=== PATIENT | female | born 1935 | race Caucasian/White ===

== ENCOUNTER → 2017-08-09 12:26 | Outpatient (CLI) | payer MEDICARE, MEDICAID, SELFPAY ==
--- NOTE | 2017-08-09 12:29 | CT_ITS ---
STUDY: CT CHEST WITHOUT CONTRAST REASON FOR EXAM: Female, 82 years old. Follow-up nodule. RADIATION DOSAGE (If Supplied By Facility): CTDIvol = ( 6.04 ) mGy, DLP = ( 229.59 ) mGycm TECHNIQUE: Transaxial imaging was performed without the administration of intravenous contrast material. Individualized dose optimization techniques were used for this CT. COMPARISON: CT scan chest 08/09/2016 and 02/08/2016. FINDINGS: There is a calcification in the thyroid isthmus which is stable in appearance. There are fibrotic and emphysematous changes in the lungs. There is no visualized discrete pulmonary nodule. There is no demonstrated mass or focal pulmonary infiltrate. There is no demonstrated pleural abnormality. Normal heart and pericardium. There are coronary artery calcifications. There are mediastinal lymph nodes which are normal in size and morphology. Normal hilar regions. Normal unenhanced pulmonary arteries. There are atherosclerotic calcifications of the thoracic aorta and great vessels. There are multi-level degenerative changes of the thoracic spine. There are bilateral adrenal adenomas. 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 Atherosclerosis. No evidence for acute cardiopulmonary pathology. No visualized pulmonary nodules. Bilateral adrenal adenomas. Electronically Signed: Saul Dejesus MD at 6:34 EDT , Service support ,
== END ==
PROVIDERS: Family Provider Nurse Practitioner Family; PCP Nurse Practitioner Family; Visit Provider Internal Medicine Pulmonary Disease
DX: R91.1 Solitary pulmonary nodule (principal)
CPT/HCPCS: 71250

== ENCOUNTER 2018-12-10 23:04 | Observation (INO) | payer MEDICARE, MEDICAID, SELFPAY ==
[2018-12-10 23:04] VITALS: BP 183/70; PULSE 57; RESP 13; TEMP 36.8; O2SAT 96; BMI 18.6
--- NOTE | 2018-12-10 23:21 | EKG12_ITS ---
Test Reason : CP Blood Pressure : / mmHG Vent. Rate : 053 BPM Atrial Rate : 053 BPM P-R Int : 162 ms QRS Dur : 082 ms QT Int : 534 ms P-R-T Axes : 087 059 122 degrees QTc Int : 501 ms Sinus bradycardia Minimal voltage criteria for LVH, may be normal variant ST & T wave abnormality, consider anterolateral ischemia Prolonged QT Abnormal ECG Confirmed by LINSEY GREEN, CHIOMA ([id number]), features editor DARWIN RAMIREZ ([id number]) on 12/13/2018 10:22:28 AM Referred By: Jhon De León Confirmed By:CHIOMA STILES MD
--- NOTE | 2018-12-10 23:22 | ED.DCSUM_ITS ---
- ER Visit Summary Date of Service: 12/10/18 Chief Complaint: Chest pain History of Present Illness: The patient is a 83 F who presents with chest pain. This began about 5 hours before presentation while at rest. It is in the center of her chest and radiated into her right jaw. She took one sublingual ni troglycerin with improvement but not resolution of symptoms. Her pain was severe but she currently rates it as 2 out of 10. She denies any associated symptoms such as nausea vomiting shortness of breath diaphoresis. She denies history of coronary disease. She is a heavy smoker and also treated for hypertension and hyperlipidemia. Physical Examination: Afebrile blood pressure 183/70 heart rate 57 No distress Skin warm and dry Moist mucous membranes Heart regular bradycardia Lungs clear Abdomen soft 2+ symmetric radial pulses Alert Test Results: EKG shows sinus rhythm at a rate of 53 no ectopy she has lateral T wave inversions and a Wellens syndrome appearance of V3 although this is overall similar to prior. CBC BMP unremarkable and troponin negative. Chest x-ray shows findings consistent with COPD. Emergency Department Course and Treatment: Patient was given 1 further sublingual nitroglycerin here and pain is resolved. She does have multiple risk factors. Her presentation is very concerning for cardiac ischemia. Patient will be discussed with the hospitalist and admitted. Treatment Plan: [] Disposition: Admit Impression: Chest pain This note was generated with [employer] dictation software. It may contain incorrect words, spelling, and punctuation that were not noted in review of the chart prior to signing ED Disposition - Plan for ED Patient: Referrals: Martin Christie, EITAN-C [Primary Care Provider] -
[2018-12-10] MEDS: Nitroglycerin SL (ED/IMG/CATH) 0.4 MG TABLET SUBLINGUAL (23:31)
[2018-12-10 23:32] LABS: Absolute Lymphocyte Count 1.69 X10^3/uL (0.83-4.51); Absolute Neutrophil Count 6.1 X10^3/uL (2.0-7.7); Basophil# 0.05 X10^3/uL; Basophil% 0.6 % (0-1); Eosinophils% 1.1 % (0-5); Hematocrit 42.2 % (37-47); Hemoglobin 14.3 g/dL (12.0-15.0); Lymphocyte # 1.69 X10^3/ul (4.0); Lymphocyte % 19.2 % (19-41); Mean Corp Hgb Conc 33.9 g/dL (32-36); Mean Corpuscular Hgb 33.1 pg (27.0-32.0); Mean Corpuscular Volume 97.7 fL (81-99); Mean Platelet Vol. 11.7 fl (6.2-12.0); Monocyte# 0.75 X10^3/uL; Monocyte% 8.5 % (0-10); NRBC Flagged by Analyzer 0 % (0-5); Neutrophil # 6.13 X10^3/uL (2.7-7.7); Neutrophil % 69.9 % (47-70); Platelet Count 178 K/mm3 (150-450); RBC Distribution Width CV 13.1 % (11.6-14.6); RBC Distribution Width SD 46.7 fl (35.1-43.9); Red Blood Count 4.32 M/mm3 (4.2-5.4); White Blood Count 8.8 K/mm3 (4.4-11.0)
[2018-12-10 23:36] VITALS: BP 129/72; PULSE 56
[2018-12-10 23:45] LABS: Anion Gap 4 (5-15); BUN 17 mg/dL (7-18); BUN/Creat Ratio 20.6 RATIO (10-20); Calcium,Total 9.2 mg/dL (8.5-10.1); Chloride 105 mmol/L (98-107); Creatinine, Serum 0.82 mg/dL (0.55-1.02); EST Glomerular Filtration Rate 70 mL/min (>60); Est Glom Filt Rate - Afr Amer 85 mL/min (>60); Estimated Creatinine Clearance 37.25 ml/min; Glucose 113 mg/dL (74-106); Potassium 3.7 mmol/L (3.5-5.1); Sodium Level 137 mmol/L (136-145)
--- NOTE | 2018-12-11 | RAD_ITS ---
STUDY: X-RAY CHEST REASON FOR EXAM: Female, 83 years old. Chest pain TECHNIQUE: Frontal and lateral views of the chest. COMPARISON: None. FINDINGS: There is hyperinflation of the lungs consistent with chronic obstructive lung disease (COPD). There is no demonstrated pleural abnormality. Normal size heart. Normal mediastinum and matthias. Normal visualized pulmonary arteries. Normal visualized aortic arch and descending thoracic aorta. There is demineralization of the osseous structures. There is degenerative osteoarthritis of the bilateral shoulders. There is no demonstrated abnormality of the visualized soft tissue structures of the upper abdomen. RAD/Chest PA and Lateral IMPRESSION: COPD. Electronically Signed: Lenora Haynes, at 1:29 EDT Tel , Service support ,
--- NOTE | 2018-12-11 02:20 | PCM.HP.STD ---
Problem List (1) COPD Status: Chronic (2) RA (rheumatoid arthritis) Status: Chronic (3) Osteoarthritis Status: Chronic (4) Pulmonary hypertension Status: Chronic (5) CKD stage III Status: Chronic (6) Hypertension Status: Chronic (7) Abnormal electrocardiogram [ECG] [EKG] Status: Chronic (8) Chest pain Status: Acute History of Present Illness Date of Admission: 12/11/18 Chief Complaint: Chest pain The patient is a 83 year old F with history of COPD, smoker about 70 pack years of his smoking came to ER with sudden onset of chest pain about 6:30 PM on 12/10/2018. Pain lasted for about 5 hours and she took 1 nitro sublingual and EMS gave 3 tablets of aspirin. She describes chest pain as midsternal with radiation to right carotid and right side of chest and she was not able to lay down. She denies any shortness of breath, diaphoresis, syncope. She denies recent URI but has occasional chronic cough secondary to COPD. In ED, EKG shows sinus bradycardia at 53 bpm, ST-T changes. T inversion in 1, V3 to V6. Similar T inversion noticed in EKG of February 2016 when she was admitted for chest pain. At that time stress test was negative. Later on she had another nuclear stress test in 2018 in [facility] and as per patient it was negative. [] Past Medical History Past Medical History (Chronic Problems): Chronic Problems COPD (Chronic) RA (rheumatoid arthritis) (Chronic) Osteoarthritis (Chronic) Pulmonary hypertension (Chronic) CKD stage III (Chronic) Hypertension (Chronic) Abnormal electrocardiogram [ECG] [EKG] (Chronic) Allergies No Known Allergies Allergy (Verified 12/10/18 23:10) Home Medications: Ambulatory Orders Medication Instructions Recorded Aspirin [Adult Low Dose Aspirin EC] 81 mg PO DAILY 02/07/16 Docusate Sodium [Stool Softener] 100 mg PO PRN PRN 02/07/16 Isosorbide Mononitrate [Isosorbide 30 mg PO DAILY 02/07/16 Mononitrate ER] Lisinopril/Hydrochlorothiazide 1 tablet PO DAILY 02/07/16 [Zestoretic 02/17.5 Tablet] Loratadine 10 mg PO DAILY 02/07/16 Meloxicam [Mobic] 15 mg PO DAILY 02/07/16 Metoprolol Tartrate [Lopressor 25 mg PO DAILY 02/07/16 (beta cherelle)] Nitroglycerin (INPATIENT USE) 0.4 mg SUBLINGUAL Q5M PRN 02/07/16 [Nitrostat] Oxybutynin Chloride [Ditropan Xl] 5 mg PO DAILY 02/07/16 Ranitidine HCl [Acid Control] 150 mg PO BID 02/07/16 Simvastatin [Zocor] 40 mg PO QHS 02/07/16 traMADol [Ultram] 50 mg PO Q6H PRN PRN 02/07/16 Albuterol Inhaler [Ventolin Hfa 2 puff INHALATION Q4H PRN PRN 12/10/18 (SP)] Alendronate Sodium [Fosamax] 70 mg PO QWEEK 12/10/18 Ergocalciferol [Vitamin D] 50,000 unit PO QMONTH 12/10/18 Tofacitinib Citrate [Xeljanz Xr] 11 mg PO DAILY 12/10/18 Surgical History: cataract, cholecystectomy, hysterectomy, - - Left shoulder rotator cuff repair Psychiatric History: No pertinent psych hx 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 Denies: Palpitations Respiratory: Reports: Cough - Chronic in nature. Denies: Shortness of breath at rest, Sputum production Gastrointestinal: Denies: Abdominal Pain, Nausea, Vomiting Genitourinary: Denies: Dysuria, Frequency, Hematuria, Hesitancy, Urgency Musculoskeletal: Reports: Hand Pain, Joint Pain, Joint stiffness, - - Has RA and osteoarthritis. Denies: Joint Tenderness Skin: Denies: Rash, Wounds Neurological: Reports: Balance problems. Denies: Focal weakness, Numbness, Tingling Psychiatric: Denies: Anxiety, Depression, Homicidal Ideations, Suicidal Ideations Hematologic/ Lymphatic: Denies: Easy Bruising, Easy Bleeding VTE Information - Inpt Only VTE Present on Admission: No VTE Mechan Device Prophylaxis: None VTE Pharm Prophylaxis ordered?: Yes - Physical Exam General: Alert, Oriented x3, Cooperative HEENT: Atraumatic, PERRLA, EOMI, Normocephalic Neck: Supple, No JVD, Negative Carotid Bruits Lungs: Clear to auscultation, No rhonchi, No wheeze, No rales, Diminished - Air entry severely diminished in all lung espinoza. Cardiovascular: Regular Rhythm, Normal S1, Normal S2, No murmurs, Bradycardic Abdomen: Bowel Sounds Present, Soft, Non Tender, Non-Distended Extremities: No edema, Capillary Refill Less than 3 Seconds Skin: No rashes, No breakdown Musculoskeletal: No Tenderness to Palpation of Joints or Extremities, Arthritic Changes, Muscle Wasting Lymphatic: No Cervical, Supraclavicular, or Inguinal Adenopathy Neurological: Cranial nerves II-XII grossly intact, Deep Tendon Reflexes 2+/4 and Symmetrical, Neuro grossly intact Psych/Mental Status: Normal Affect, Appropriate Vital Signs Temp Pulse Resp BP Pulse Ox 98.2 F 56 L 13 129/72 H 96 12/10/18 23:04 12/10/18 23:36 12/10/18 23:04 12/10/18 23:36 12/10/18 23:04 Oxygen Delivery Method Room Air Weight: 101 lb 13.657 oz Body Mass Index (BMI) 18.6 Laboratory Tests Past 24 Hrs 12/10/18 12/10/18 23:10 23:10 WBC 8.8 RBC 4.32 Hgb 14.3 Hct 42.2 MCV 97.7 MCH 33.1 H MCHC 33.9 RDW Std Deviation 46.7 H RDW Coeff of Kerrie 13.1 Plt Count 178 MPV 11.7 Immature Gran % (Auto) 0.700 Neut % (Auto) 69.9 Lymph % (Auto) 19.2 [place] % (Auto) 8.5 Eos % (Auto) 1.1 Baso % (Auto) 0.6 Absolute Neuts (auto) 6.1 Absolute Lymphs (auto) 1.69 Nucleated RBC % 0 Sodium 137 Potassium 3.7 Chloride 105 Carbon Dioxide 28.0 Anion Gap 4 L BUN 17 Creatinine 0.82 Estim Creat Clear Calc 37.25 Est GFR (MDRD) Af Amer 85 Est GFR (MDRD) Non-Af 70 BUN/Creatinine Ratio 20.6 H Glucose 113 H Calcium 9.2 Troponin I < 0.015 Assessment/Plan All Active Problems Chest pain (Acute) The patient is a 83 year old F with history of COPD, smoker about 70 pack years of his smoking came to ER with sudden onset of chest pain about 6:30 PM on 12/10/2018. Pain lasted for about 5 hours and she took 1 nitro sublingual and EMS gave 3 tablets of aspirin. She describes chest pain as midsternal with radiation to right carotid and right side of chest and she was In ED, EKG shows sinus bradycardia at 53 bpm, ST-T changes. T inversion in 1, V3 to V6. Similar T inversion noticed in EKG of February 2016 when she was admitted for chest pain. At that time stress test was negative. Later on she had another nuclear stress test in 2018 in [facility] and as per patient it was negative. [] 1. Atypical chest pain rule out acute coronary syndrome: Patient is being admitted in PCU. Serial troponin enzymes. Lexiscan nuclear stress test tomorrow morning if troponin enzymes are negative. Patient had a negative Lexiscan nuclear stress test in February 2016 when she was admitted for chest pain. Echo at that time reported as EF 65% with normal LV size systolic function. Normal RV size systolic function. Mild to moderate TR, RVSP 46 mmHg suggestive of mild to moderate pulmonary hypertension. First troponin is negative. Her home medication of baby aspirin, simvastatin, and isosorbide mononitrate continued. It is unclear why she is on nitrate and metoprolol. Hold metoprolol for stress test tomorrow morning and also she is bradycardic 56/min 2. COPD with mild to moderate pulmonary hypertension: Stable. Currently she does not have shortness of breath or wheezing suggestive of COPD exacerbation. Continue albuterol and home inhalers. 3. Rheumatoid arthritis and osteoarthritis with chronic vitamin D supplement: Patient is on Xeljanz XR, vitamin D, Fosamax and tramadol as needed at home. 4. Hypertension and dyslipidemia: Continue lisinopril/HCTZ simvastatin. 5. Other comorbidities include chronic urinary incontinence and mild protein calorie malnutrition: Patient has decreased muscle mass of extremities probably secondary to COPD and chronic smoker. DVT prophylaxis: Lovenox 40 g subcu daily Code Visit OBSV E&M: [id number] Initial observation care L3
--- NOTE | 2018-12-11 02:37 | EKG12_ITS ---
Test Reason : CP ADMISSION Blood Pressure : / mmHG Vent. Rate : 049 BPM Atrial Rate : 049 BPM P-R Int : 168 ms QRS Dur : 082 ms QT Int : 542 ms P-R-T Axes : 085 068 140 degrees QTc Int : [address] & T wave abnormality, consider anterolateral ischemia Prolonged QT Abnormal ECG Confirmed by LINSEY GREEN, CHIOMA ([id number]), news editor DARWIN RAMIREZ ([id number]) on 12/13/2018 2:23:53 PM Referred By: Jhno De León Confirmed By:CHIOMA STILES MD
[2018-12-11 02:47] VITALS: BMI 17.4
[2018-12-11 02:51] VITALS: BP 166/55; PULSE 50; RESP 14; TEMP 36.6; O2SAT 96
[2018-12-11] MEDS: 0.9% Normal Saline 1,000 ML 75 ML IV (02:56)
[2018-12-11 03:00] VITALS: PULSE 53
[2018-12-11 06:14] VITALS: BP 161/59; PULSE 54; RESP 14; TEMP 36.5; O2SAT 94
[2018-12-11] MEDS: Lisinopril 10 MG Tablet PO (06:19)
[2018-12-11] MEDS: Aspirin E.C. 81 MG Tablet PO (06:19)
[2018-12-11] MEDS: 0.9% NaCl Peripheral Flush Adult/Peds IV (06:20)
[2018-12-11 06:41] LABS: Cholesterol 146 mg/dL (200); High Density Lipoprotein 70 mg/dL; Thyroid Stim Hormone (TSH) 1.03 uIU/mL (0.358-3.74); Triglycerides 82 mg/dL; Very Low Density Lipoprotein 16 mg/dL (5-40)
[2018-12-11 07:06] VITALS: O2SAT 94
--- NOTE | 2018-12-11 11:02 | DCINST_ITS ---
- Discharge Diagnoses Current Active Problems: Current Active and Chronic Problems COPD (Chronic) RA (rheumatoid arthritis) (Chronic) Osteoarthritis (Chronic) Pulmonary hypertension (Chronic) CKD stage III (Chronic) Hypertension (Chronic) You will use the following diet at home:: Cardiac Discharge Activity: Return to Normal Activity Call your doctor if you observe: Shortness of breath, Dizziness, Fainting spells, Chest pain Additional Instructions: Your blood pressure was above goal during admission. You will need to check your blood pressure twice daily at home and document readings. Report these readings to PCP at follow up in 1 week. If you have a reading greater than 180 systolically, notify your PCP right away. Allergies/Adverse Reactions: Allergies No Known Allergies Allergy (Verified 12/10/18 23:10) Medications to take at Discharge Aspirin [Adult Low Dose Aspirin EC] 81 mg PO DAILY 02/07/16 Docusate Sodium [Stool Softener] 100 mg PO PRN PRN 02/07/16 Isosorbide Mononitrate [Isosorbide Mononitrate ER] 30 mg PO DAILY 02/07/16 Lisinopril/Hydrochlorothiazide [Zestoretic 02/17.5 Tablet] 1 tablet PO DAILY 02/07/16 Loratadine 10 mg PO DAILY 02/07/16 Meloxicam [Mobic] 15 mg PO DAILY 02/07/16 Metoprolol Tartrate [Lopressor (beta cherelle)] 25 mg PO DAILY 02/07/16 Nitroglycerin (INPATIENT USE) [Nitrostat] 0.4 mg SUBLINGUAL Q5M PRN 02/07/16 Oxybutynin Chloride [Ditropan Xl] 5 mg PO DAILY 02/07/16 Ranitidine HCl [Acid Control] 150 mg PO BID 02/07/16 Simvastatin [Zocor] 40 mg PO QHS 02/07/16 traMADol [Ultram] 50 mg PO Q6H PRN PRN 02/07/16 Albuterol Inhaler [Ventolin Hfa (SP)] 2 puff INHALATION Q4H PRN PRN 12/10/18 Alendronate Sodium [Fosamax] 70 mg PO QWEEK 12/10/18 Ergocalciferol [Vitamin D] 50,000 unit PO QMONTH 12/10/18 Tofacitinib Citrate [Xeljanz Xr] 11 mg PO DAILY 12/10/18 Primary Care Physician: Martin Christie, EITAN-C [Primary Care Provider] - Please follow up with your Primary Care Physician in: 1 Week Test Results: Test results from this visit will be discussed in further detail at your follow- up appointment, if applicable. Proposed Discharge Date: 12/11/18
[2018-12-11] MEDS: Tolterodine Tartrate 2 MG CAP.SA PO (11:28)
[2018-12-11] MEDS: Isosorbide Mononitrate 30 MG Tablet PO (11:28)
[2018-12-11] MEDS: hydroCHLOROthiazide 12.5mg 12.5 MG PO (11:28)
[2018-12-11] MEDS: Famotidine 20 MG Tablet PO (11:28)
[2018-12-11 11:34] VITALS: BP 151/73; PULSE 60; RESP 16; TEMP 36.7; O2SAT 97
--- NOTE | 2018-12-11 12:36 | STRESSREP ---
Stress Test Report Date: 12-11-18 Procedure: Pharmacologic stress nuclear imaging study Indications: Chest pain Consent: Per the patient Procedure: The patient underwent pharmacologic (Regadenoson) evaluation with a peak heart rate of 101 beats per minute (74 %predicted maximal heart rate) and a peak blood pressure of 164/60 mmHg. The baseline ECG demonstrated sinus bradycardia; nonspecific T wave abnormality. The peak pharmacologic ECG demonstrated continued nonspecific T wave abnormality. There were no cardiac dysrhythmias pretest, during pharmacologic infusion, or recovery. There was no complaint of chest discomfort during pharmacologic infusion or recovery. The examination was discontinued secondary to completion of protocol. Impression: 1. Pharmacologic (Regadenoson) evaluation 2. Peak pharmacologic ECG with continued nonspecific T wave abnormality. 3. There were no cardiac dysrhythmias pretest, during pharmacologic infusion, or recovery. 4. Nuclear images pending Myocardial perfusion imaging study: Technique: The patient was injected with 12.0 millicuries of technetium 99m Cardiolite and subsequently rest SPECT Cardiolite nuclear imaging was obtained in the horizontal long, vertical long, and short axis views. The patient underwent pharmacologic (Regadenoson) evaluation with a peak heart rate of 101 beats per minute (74 % percent predicted maximal heart rate) and a peak blood pressure of 164/60 mmHg. The patient was injected with 36.0 millicuries of technetium 99m Cardiolite and subsequently stress SPECT Cardiolite nuclear imaging was obtained in the horizontal long, vertical long, and short axis views. A gated Cardiolite study at peak stress was obtained. Interpretation: Rest and stress SPECT Cardiolite nuclear imaging status post realignment, normalization, and attenuation correction demonstrate relative uniform tracer uptake and myocardial perfusion appearing within normal limits. There is end systolic thickening and brightening. The gated Cardiolite study demonstrates myocardial thickening and inward wall motion. The reported LVEF is 87 %. Impression: 1. Rest and stress SPECT Cardiolite nuclear imaging demonstrate relative uniform tracer uptake and myocardial perfusion appearing within normal limits. 2. The gated Cardiolite study reports an LVEF of 87 %. This note was generated with [employer] software. It may contain incorrect words, spelling, and punctuation that were not noted in checking the note before signing.
--- NOTE | 2018-12-11 12:43 | DS.PCM_ITS ---
<Queenie Zaldivar - Last Filed: 12/11/18 12:52> Discharge Date and Diagnosis Date of Admission: 12/11/18 Date of Discharge: 12/11/18 - Primary Discharge Diagnosis 1. Atypical chest pain, ACS ruled out 2. Chronic COPD 3. Mild to moderate pulmonary hypertension 4. Rheumatoid arthritis and osteoarthritis 5. Hypertension 6. Hyperlipidemia 7. Chronic urinary incontinence 8. Moderate protein calorie malnutrition 9. Tobacco dependence - Secondary Discharge Diagnosis Chronic Problems COPD (Chronic) RA (rheumatoid arthritis) (Chronic) Osteoarthritis (Chronic) Pulmonary hypertension (Chronic) CKD stage III (Chronic) Hypertension (Chronic) Abnormal electrocardiogram [ECG] [EKG] (Chronic) Hospital Course and Treatment Imaging Results: Diagnostic Data Chest X-Ray 12/11/18 00:00 IMPRESSION: COPD. Electronically Signed: Lenora Haynes, at 1:29 EDT Tel , Service support , Operations: None Procedures: Stress test Summary of Care Provided: The patient is a 83 year old F admitted 12/11/2018 due to chest pain. 1. Atypical chest pain, ACS ruled out-troponin negative. EKG without ST-T changes. Patient underwent stress test which was negative for ischemia. Follow-up with primary care physician in 1 week. Suspect pain muscular skeletal nature given underlying rheumatoid arthritis and osteoarthritis. 2. Chronic COPD-continue as needed albuterol inhaler. No acute exacerbation. 3. Mild to moderate pulmonary hypertension 4. Rheumatoid arthritis and osteoarthritis-continue home PRN regimen and Xeljanz. 5. Hypertension-stable, continue home lisinopril/HCTZ, metoprolol, isosorbide regimen. Blood pressure intermittently elevated during admission, 160s systolically. Recommend continued blood pressure monitoring at discharge and follow-up closely with PCP. 6. Hyperlipidemia-continue statin regimen. 7. Chronic urinary incontinence-continue home oxybutynin regimen. 8. Moderate protein calorie malnutrition-cachectic, evidence of decreased muscle mass. BMI 17. 9. Tobacco dependence-encouraged smoking cessation. 10. Chronic kidney disease stage III-at baseline. Patient seen and examined prior to discharge. Physical assessment as noted below. Patient is stable for discharge with follow up recommendations as noted above. This patient was seen by Queenie Zen, [employer] under the supervision of Dr. Calvert. - Physical Exam General: Alert, Oriented x3, Cooperative HEENT: Atraumatic, PERRLA, EOMI, Normocephalic Neck: Supple, No JVD, Negative Carotid Bruits Lungs: Clear to auscultation, Normal air movement Cardiovascular: Regular rate, Regular Rhythm, Normal S1, Normal S2, No murmurs Abdomen: Bowel Sounds Present, Soft, Non Tender, Non-Distended Extremities: No clubbing, No cyanosis, No edema, Capillary Refill Less than 3 Seconds Skin: No rashes, No breakdown Musculoskeletal: No Tenderness to Palpation of Joints or Extremities, Cachexia, Muscle Wasting Neurological: Cranial nerves II-XII grossly intact, Neuro grossly intact Psych/Mental Status: Normal Affect, Appropriate Vital Signs Temp Pulse Resp BP Pulse Ox 98.0 F 60 16 151/73 H 97 12/11/18 11:34 12/11/18 11:34 12/11/18 11:34 12/11/18 11:34 12/11/18 11:34 Oxygen Delivery Method Room Air Weight: 95 lb 3.835 oz Body Mass Index (BMI) 17.4 Intake and Output for Last 24 Hours 12/09/18 12/10/18 12/11/18 23:59 23:59 23:59 Intake Total 725 / 725 Balance 725 / 725 Laboratory Tests Past 24 Hrs 12/10/18 12/10/18 12/11/18 23:10 23:10 02:40 WBC 8.8 RBC 4.32 Hgb 14.3 Hct 42.2 MCV 97.7 MCH 33.1 H MCHC 33.9 RDW Std Deviation 46.7 H RDW Coeff of Kerrie 13.1 Plt Count 178 MPV 11.7 Immature Gran % (Auto) 0.700 Neut % (Auto) 69.9 Lymph % (Auto) 19.2 [place] % (Auto) 8.5 Eos % (Auto) 1.1 Baso % (Auto) 0.6 Absolute Neuts (auto) 6.1 Absolute Lymphs (auto) 1.69 Nucleated RBC % 0 Sodium 137 Potassium 3.7 Chloride 105 Carbon Dioxide 28.0 Anion Gap 4 L BUN 17 Creatinine 0.82 Estim Creat Clear Calc 37.25 Est GFR (MDRD) Af Amer 85 Est GFR (MDRD) Non-Af 70 BUN/Creatinine Ratio 20.6 H Glucose 113 H Calcium 9.2 Troponin I < 0.015 < 0.015 Triglycerides Cholesterol LDL Cholesterol VLDL Cholesterol HDL Cholesterol TSH 12/11/18 05:50 WBC RBC Hgb Hct MCV MCH MCHC RDW Std Deviation RDW Coeff of Kerrie Plt Count MPV Immature Gran % (Auto) Neut % (Auto) Lymph % (Auto) [place] % (Auto) Eos % (Auto) Baso % (Auto) Absolute Neuts (auto) Absolute Lymphs (auto) Nucleated RBC % Sodium Potassium Chloride Carbon Dioxide Anion Gap BUN Creatinine Estim Creat Clear Calc Est GFR (MDRD) Af Amer Est GFR (MDRD) Non-Af BUN/Creatinine Ratio Glucose Calcium Troponin I < 0.015 Triglycerides 82 Cholesterol 146 LDL Cholesterol 60 VLDL Cholesterol 16 HDL Cholesterol 70 TSH 1.03 Discharge Diet: No Restrictions Discharge Activity: Return to Normal Activity Call your doctor if you observe: Shortness of breath, Dizziness, Fainting spells, Chest pain Home Medications: Medications to take at Discharge Aspirin [Adult Low Dose Aspirin EC] 81 mg PO DAILY 02/07/16 Docusate Sodium [Stool Softener] 100 mg PO PRN PRN 02/07/16 Isosorbide Mononitrate [Isosorbide Mononitrate ER] 30 mg PO DAILY 02/07/16 Lisinopril/Hydrochlorothiazide [Zestoretic 02/17.5 Tablet] 1 tablet PO DAILY 02/07/16 Loratadine 10 mg PO DAILY 02/07/16 Meloxicam [Mobic] 15 mg PO DAILY 02/07/16 Metoprolol Tartrate [Lopressor (beta cherelle)] 25 mg PO DAILY 02/07/16 Nitroglycerin (INPATIENT USE) [Nitrostat] 0.4 mg SUBLINGUAL Q5M PRN 02/07/16 Oxybutynin Chloride [Ditropan Xl] 5 mg PO DAILY 02/07/16 Ranitidine HCl [Acid Control] 150 mg PO BID 02/07/16 Simvastatin [Zocor] 40 mg PO QHS 02/07/16 traMADol [Ultram] 50 mg PO Q6H PRN PRN 02/07/16 Albuterol Inhaler [Ventolin Hfa (SP)] 2 puff INHALATION Q4H PRN PRN 12/10/18 Alendronate Sodium [Fosamax] 70 mg PO QWEEK 12/10/18 Ergocalciferol [Vitamin D] 50,000 unit PO QMONTH 12/10/18 Tofacitinib Citrate [Xeljanz Xr] 11 mg PO DAILY 12/10/18 Primary Care Physician: Martin Christie NP-C [Primary Care Provider] - Please follow up with your Primary Care Physician in: 1 Week Disposition: Home Minutes spent on discharge:: 35 Patient Condition:: Stable Medical Necessity - Tobacco Use Smoking Status: Current every day smoker Tobacco Use: Cigarettes Meaningful Use Info Meaningful Use Diagnoses (Choose all that apply): None applicable <Ramin Calvert F - Last Filed: 12/11/18 13:40> Discharge Date and Diagnosis - Secondary Discharge Diagnosis Chronic Problems COPD (Chronic) RA (rheumatoid arthritis) (Chronic) Osteoarthritis (Chronic) Pulmonary hypertension (Chronic) CKD stage III (Chronic) Hypertension (Chronic) Abnormal electrocardiogram [ECG] [EKG] (Chronic) Hospital Course and Treatment Imaging Results: 12/11/18 05:55 Nuclear Stress Test - Chemical [NM] AM (NON MEDS) Summary of Care Provided: The patient is a 83 year old F [] - Physical Exam Vital Signs Temp Pulse Resp BP Pulse Ox 98.0 F 60 16 151/73 H 97 12/11/18 11:34 12/11/18 11:34 12/11/18 11:34 12/11/18 11:34 12/11/18 11:34 Oxygen Delivery Method Room Air Weight: 95 lb 3.835 oz Body Mass Index (BMI) 17.4 Intake and Output for Last 24 Hours 12/09/18 12/10/18 12/11/18 23:59 23:59 23:59 Intake Total 725 / 725 Balance 725 / 725 Laboratory Tests Past 24 Hrs 12/10/18 12/10/18 12/11/18 23:10 23:10 02:40 WBC 8.8 RBC 4.32 Hgb 14.3 Hct 42.2 MCV 97.7 MCH 33.1 H MCHC 33.9 RDW Std Deviation 46.7 H RDW Coeff of Kerrie 13.1 Plt Count 178 MPV 11.7 Immature Gran % (Auto) 0.700 Neut % (Auto) 69.9 Lymph % (Auto) 19.2 [place] % (Auto) 8.5 Eos % (Auto) 1.1 Baso % (Auto) 0.6 Absolute Neuts (auto) 6.1 Absolute Lymphs (auto) 1.69 Nucleated RBC % 0 Sodium 137 Potassium 3.7 Chloride 105 Carbon Dioxide 28.0 Anion Gap 4 L BUN 17 Creatinine 0.82 Estim Creat Clear Calc 37.25 Est GFR (MDRD) Af Amer 85 Est GFR (MDRD) Non-Af 70 BUN/Creatinine Ratio 20.6 H Glucose 113 H Calcium 9.2 Troponin I < 0.015 < 0.015 Triglycerides Cholesterol LDL Cholesterol VLDL Cholesterol HDL Cholesterol TSH 12/11/18 05:50 WBC RBC Hgb Hct MCV MCH MCHC RDW Std Deviation RDW Coeff of Kerrie Plt Count MPV Immature Gran % (Auto) Neut % (Auto) Lymph % (Auto) [place] % (Auto) Eos % (Auto) Baso % (Auto) Absolute Neuts (auto) Absolute Lymphs (auto) Nucleated RBC % Sodium Potassium Chloride Carbon Dioxide Anion Gap BUN Creatinine Estim Creat Clear Calc Est GFR (MDRD) Af Amer Est GFR (MDRD) Non-Af BUN/Creatinine Ratio Glucose Calcium Troponin I < 0.015 Triglycerides 82 Cholesterol 146 LDL Cholesterol 60 VLDL Cholesterol 16 HDL Cholesterol 70 TSH 1.03 Code Visit Addendum: Dr. Calvert I personally examined the patient and reviewed the chart. I agree with the abo ve. 83-year-old female presenting with chest pain. EKG was unremarkable and her serial troponins were normal. She underwent and a nuclear medicine stress test on the day of discharge which was normal. Plan will be for discharge home today and follow-up with her primary care doctor. OBSV E&M: [id number] Observation care discharge
== END 2018-12-11 11:02 | disposition home or self-care (01) ==
LOC: ED 23:36 → PCU 12-11 02:19
PROVIDERS: Admitting Provider Internal Medicine; Emergency Provider Emergency Medicine; Family Provider Nurse Practitioner Family; PCP Nurse Practitioner Family; Referring Provider Internal Medicine; Visit Provider Family Medicine
DX: R07.89 Other chest pain (principal); E78.5 Hyperlipidemia, unspecified; I12.9 Hypertensive chronic kidney disease with stage 1 through stage 4 chronic kidney disease, or unspecified chronic kidney disease; J44.9 Chronic obstructive pulmonary disease, unspecified; M19.90 Unspecified osteoarthritis, unspecified site; M06.9 Rheumatoid arthritis, unspecified; I27.20 Pulmonary hypertension, unspecified; E44.0 Moderate protein-calorie malnutrition; R32 Unspecified urinary incontinence; F17.210 Nicotine dependence, cigarettes, uncomplicated; N18.3 Chronic kidney disease, stage 3 (moderate); R00.1 Bradycardia, unspecified; Z79.899 Other long term (current) drug therapy; Z79.82 Long term (current) use of aspirin; Z68.1 Body mass index [BMI] 19.9 or less, adult
CPT/HCPCS: 36415; 71046; 78452; 80048; 80061; 84443; 84484; 85025; 93005; 93017; 96360; 96361; 99218; 99285; 99406; A9500; J7030; A4216; G0378; J2785

== ENCOUNTER → 2019-05-25 12:42 | Outpatient (CLI) | payer MEDICARE, MEDICAID, SELFPAY ==
[2018-12-11 02:47] VITALS: BMI 17.4
--- NOTE | 2019-05-25 12:49 | CDU_ITS ---
Reason For Study: Carotid stenosis Rt. Velocities/BP Lt. Velocities/BP Prox CCA 98.2/8.2 cm/sec. Prox CCA 89.3/11.3 cm/sec. Mid CCA 82.6/9.5 cm/sec. Mid CCA 91.5/10.2 cm/sec. Dist CCA 87.8/12.1 cm/sec. Dist CCA 72.9/10.2 cm/sec. Prox ICA 33.4/6 cm/sec. Prox ICA 44.7/8.8 cm/sec. Mid ICA 67.4/10.7 cm/sec. Mid ICA 84.9/17.9 cm/sec. Dist ICA 65.5/14.5 cm/sec. Dist ICA 74/17.9 cm/sec. Rt. ICA/CCA = 0.8. Lt. ICA/CCA = 1.0. Prox ECA 129.5 cm/sec. Prox ECA 79.4 cm/sec. Rt. Vert. 49.1/7.2 cm/sec. Lt. Vert. 52/13.5 cm/sec. Right Extracranial There is homogeneous, smooth atherosclerotic plaque noted in the right common carotid artery. There is homogeneous, smooth atherosclerotic plaque noted in the right internal carotid artery. There is homogeneous, smooth atherosclerotic plaque noted in the right external carotid artery. Antegrade flow is noted in the right vertebral artery. There is heterogeneous, irregular atherosclerotic plaque noted in the right bulb. Left Extracranial There is heterogeneous, irregular atherosclerotic plaque noted in the left common carotid artery. There is heterogeneous, irregular atherosclerotic plaque noted in the left internal carotid artery. The atherosclerotic plaque causes acoustic shadowing. There is homogeneous, smooth atherosclerotic plaque noted in the left external carotid artery. Antegrade flow is noted in the left vertebral artery. Procedure Carotid Duplex 53523. Exam performed in department. Interpretation Summary Mild (<50%) stenosis right extracranial internal carotid. Mild (<50%) stenosis left extracranial internal carotid. Flow within the vertebral arteries is antegrade bilaterally. Ordering Physician: Aldo Rae Referring Physician: Martin Eli Performed By: Shaye Ulloa RVT
--- NOTE | 2019-05-25 13:17 | CT_ITS ---
STUDY: CTA OF THE ABDOMINAL AORTA AND BILATERAL LOWER EXTREMITIES REASON FOR EXAM: Female, 83 years old. CLAUDICATION- left calf pain RADIATION DOSAGE (If Supplied By Facility): CTDIvol = ( 6.83 ) mGy, DLP = ( 818.80 ) mGycm TECHNIQUE: Axial CT angiography multi-detector data acquisition was obtained from the lung bases to the feet following intravenous administration of 100ml ISOVUE 370. Axial images and MIP images were reconstructed from the axial data set. Post-processing of the angiographic images was performed, with multiplanar reformation and 3D reconstruction. Individualized dose optimization techniques were used for this CT. TECHNICAL QUALITY: Good COMPARISON: None. Descriptors of Narrowing: None (0%) Mild (< 50%) Moderate (50-70%) Severe (70-90%) Subtotal/Total Occlusion (90-100%) Non-Evaluable (technically non-diagnostic FINDINGS: Abdominal aorta: There is mild diffuse narrowing. Celiac and superior mesenteric arteries: Atherosclerosis at the origins of SMA more than celiac axis with approximately 75% stenosis of the SMA origin Inferior mesenteric artery: Pain with atherosclerosis at its origin. Right renal artery(arteries): There is mild diffuse narrowing. Left renal artery(arteries): There is moderate diffuse narrowing. Right common iliac artery: Calcific atherosclerosis shortly after the origin resulting in moderate (60 %) stenosis, measuring approximately 14 mm in length. Right external iliac artery: There is mild diffuse narrowing. Right internal iliac artery: There is moderate diffuse narrowing. Left common iliac artery: No demonstrated calcified and noncalcified plaque of the proximal common iliac artery causing 50% stenosis. Left external iliac artery: No demonstrated narrowing. Left internal iliac artery: No demonstrated narrowing. RIGHT LOWER EXTREMITY Right common femoral artery: There is moderate diffuse narrowing. Right profundus femoris: No demonstrated narrowing. Right superficial femoral: Atherosclerosis dominantly in the distal SFA with eccentric plaque causing up to 50% stenosis (image 138 series 2) with collateral arteries noted. Right popliteal artery: Calcific atherosclerosis with mild (40%) luminal narrowing. Right tibioperoneal trunk: There is moderate diffuse narrowing. Right anterior tibial artery: Atherosclerosis proximally but no hemodynamically significant stenosis with vessel patent to the dorsal foot. Right posterior tibial artery: No demonstrated narrowing. Right peroneal artery: No demonstrated narrowing. LEFT LOWER EXTREMITY Left common femoral artery: There is moderate focal narrowing. Left profundus femoris: No demonstrated narrowing. Left superficial femoral: Atherosclerosis dominantly in the distal SFA with eccentric plaque causing up to 60% stenosis (image 138 series 2) with collateral arteries noted. Left popliteal artery: There is moderate diffuse narrowing. Left tibioperoneal trunk: There is moderate diffuse narrowing. Left anterior tibial artery: Atherosclerosis proximally but no hemodynamically significant stenosis with vessel patent to the dorsal foot. Left posterior tibial artery: No demonstrated narrowing. Left peroneal artery: No demonstrated narrowing. Atelectasis or fibrotic changes at the right lung base are noted, new since 08/09/[address] The liver, spleen, pancreas and gallbladder are unremarkable although some motion artifact of the upper abdomen noted. The kidneys are symmetric in size and shape. There are simple bilateral renal cysts. Small bowel and colon are normal in caliber without evidence of wall thickening. No pelvic free fluid. No pneumoperitoneum. There are degenerative changes of the lumbar spine. CT/CTA Abd w/Runoff W/WO Contrast IMPRESSION: 1. 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 2. 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 3. Atelectasis or fibrosis of the right lung base new since prior study. Electronically Signed: Saúl Pearl MD ([place]) at 21:46 EST , Service support ,
[2019-05-25 13:36] LABS: CREATININE FINGERSTICK 0.8 mg/dL (0.55-1.02); EGFR FINGERSTICK > 60.0000 mL/min (>60)
== END ==
PROVIDERS: Family Provider Nurse Practitioner Family; PCP Nurse Practitioner Family; Referring Provider Surgery Vascular Surgery; Visit Provider Surgery Vascular Surgery
DX: I65.23 Occlusion and stenosis of bilateral carotid arteries (principal); I70.212 Atherosclerosis of native arteries of extremities with intermittent claudication, left leg; I70.211 Atherosclerosis of native arteries of extremities with intermittent claudication, right leg
CPT/HCPCS: 75635; 93880; Q9967